=== PATIENT | female | born 1955 ===

== ENCOUNTER 2017-04-10 06:20 | Day surgery (SDC) | payer OTHER ==
[~2017-04-10 06:20] MED LIST: LOSARTAN POTASS25 MG PO; METFORMIN HCL500 MG PO; NORVASC5 MG PO
[2017-04-10] MEDS ORDERED: PERCOCET 5-3251 EACH PO (10:48)
== END 2017-04-10 13:20 | disposition home or self-care (01) ==
LOC: CIR.AMB 06:20
DX: D35.1 Benign neoplasm of parathyroid gland (principal); E21.0 Primary hyperparathyroidism

== ENCOUNTER 2018-03-05 06:42 | Day surgery (SDC) | payer OTHER ==
[~2018-03-05 06:42] MED LIST changes: +PERCOCET 5-3251 EACH PO; +VASOFLEX FORTE1 EACH PO
[2018-03-05] MEDS ORDERED: PERCOCET 5-3251 EACH PO (10:33)
== END 2018-03-05 12:55 | disposition home or self-care (01) ==
LOC: CIR.AMB 06:42
DX: C73 Malignant neoplasm of thyroid gland (principal)